=== PATIENT | female | born 1965 | race African-American/Black ===

== ENCOUNTER 2019-03-19 17:00 | Inpatient (IN) ==
[2019-03-19] MEDS ORDERED: ONDANSETRON 4 MG/2 ML VIAL IV PRN (18:42)
[2019-03-19] MEDS ORDERED: ACETAMINOPHEN 325 MG TABLET PO PRN (18:42)
[2019-03-19] MEDS ORDERED: SODIUM CHLORIDE 0.9% 1,000 ML IV PRN (18:42)
[2019-03-19 19:31] LABS: Hematocrit 29.8 VOL% (35.7-47.0); Hemoglobin 9.1 GM/DL (12.0-16.0)
[2019-03-19 19:32] LABS: Basophils % 0.3 % (0.0-0.8); Eosinophils # 0.3 10*3/uL (0.0-0.87); Eosinophils % 1.7 % (0.00-10.9); Hematocrit 29.2 VOL% (35.7-47.0); Hemoglobin 9.1 GM/DL (12.0-16.0); Immature Granulocytes % 1.5 %; Immature Granulocytes Absolute 0.22 #; Lymphocytes # 3.3 10*3/uL (1.4-4.0); Lymphocytes % 23.2 % (21.3-54.2); Mean Corpuscular HGB Conc 31.2 GM/DL (32-36); Mean Platelet Volume 10.6 FL (9.6-12.0); Monocytes % 7.4 % (1.7-12.7); Neutrophils % 65.9 % (38.7-73.9); Platelet Count 569 T/CUMM (130-400); Red Blood Count 3.21 MC/CUMM (3.8-5.5); Red Cell Distribution Width 16.8 % (9.3-17.3); White Blood Count 14.4 T/CUMM (4-12)
[2019-03-19] MEDS ORDERED: DEXTROSE 50% 25 GM/50 ML VIAL IV PRN (19:58)
[2019-03-19] MEDS ORDERED: GLUCAGON 1 MG VIAL IM PRN (19:58)
[2019-03-19] MEDS ORDERED: COLCHICINE 0.6 MG CAPSULE PO PRN (20:04)
[2019-03-19] MEDS: LEVOFLOXACIN INJ 500 MG in PREMIX 1 EACH IV SCH (21:19)
[2019-03-19] MEDS: PANTOPRAZOLE 40 MG TABLET PO SCH (21:27)
[2019-03-19] MEDS: GABAPENTIN 300 MG CAPSULE PO SCH (21:27)
[2019-03-20] MEDS: INSULIN REGULAR 100 UNIT/ML SUBCUT SCH ×5 (00:22→20:37)
[2019-03-20 01:00] LABS: Hematocrit 26.6 VOL% (35.7-47.0); Hemoglobin 8.3 GM/DL (12.0-16.0)
[2019-03-20 06:58] LABS: Hematocrit 26.5 VOL% (35.7-47.0); Hemoglobin 8.3 GM/DL (12.0-16.0)
[2019-03-20 07:30] LABS: Alanine Aminotransferase 18 U/L (13-56); Albumin 1.5 G/DL (3.4-5.0); Alkaline Phosphatase 107 U/L (45-117); Aspartate Amino Transferase 14 U/L (0-37); Bilirubin,Total < 0.39 MG/DL (0.2-1.0); Blood Urea Nitrogen 24 MG/DL (7-18); Calcium 8.9 MG/DL (8.5-10.1); Estimated Glom Filtration Rate 48 ML/MIN; Glucose 76 MG/DL (74-106); Osmolality,Calculated 281.4 MOS/KG (273-304); Total Protein 6.7 G/DL (6.4-8.3)
[2019-03-20] MEDS ORDERED: PANTOPRAZOLE 40 MG TABLET PO SCH (09:00)
[2019-03-20] MEDS: ESCITALOPRAM 10 MG TABLET PO SCH (09:24)
[2019-03-20] MEDS: PANTOPRAZOLE 40 MG TABLET PO SCH ×2 (09:24→20:35)
[2019-03-20] MEDS: allopurinoL 100 MG TABLET PO SCH (09:24)
[2019-03-20] MEDS: METOPROLOL TARTRATE 100 MG TABLET PO SCH (09:24)
[2019-03-20] MEDS: amLODIPine 10 MG TABLET PO SCH (09:24)
[2019-03-20] MEDS ORDERED: LIDOCAINE 2% 5 ML VIAL ONE (09:30)
[2019-03-20] MEDS ORDERED: propofoL 200 MG/20 ML VIAL IV ONE (09:30)
[2019-03-20] MEDS ORDERED: PHENYLEPHRINE 1 MG/10 ML SYRINGE IV ONE (09:30)
[2019-03-20] MEDS: SODIUM CHLORIDE 0.9% 1,000 ML IV SCH (11:20)
[2019-03-20 13:39] LABS: Hematocrit 27.9 VOL% (35.7-47.0); Hemoglobin 8.5 GM/DL (12.0-16.0)
[2019-03-20] MEDS: SODIUM HYPOCHLORITE 0.25% IRRIG 473 ML BOTTLE TOP SCH (16:05)
[2019-03-20 19:29] LABS: Hematocrit 27.9 VOL% (35.7-47.0); Hemoglobin 8.8 GM/DL (12.0-16.0)
[2019-03-20] MEDS: GABAPENTIN 300 MG CAPSULE PO SCH (20:35)
[2019-03-20] MEDS: LEVOFLOXACIN INJ 500 MG in PREMIX 1 EACH IV SCH (20:37)
[2019-03-21 06:50] LABS: Basophils % 0.3 % (0.0-0.8); Eosinophils # 0.2 10*3/uL (0.0-0.87); Eosinophils % 1.6 % (0.00-10.9); Hematocrit 28.9 VOL% (35.7-47.0); Immature Granulocytes % 1.1 %; Immature Granulocytes Absolute 0.15 #; Lymphocytes # 1.5 10*3/uL (1.4-4.0); Lymphocytes % 10.7 % (21.3-54.2); Mean Corpuscular HGB Conc 31.1 GM/DL (32-36); Mean Corpuscular Volume 90.3 FL (87-102); Mean Platelet Volume 10.4 FL (9.6-12.0); Monocytes % 5.6 % (1.7-12.7); Neutrophils % 80.7 % (38.7-73.9); Platelet Count 587 T/CUMM (130-400); Red Cell Distribution Width 17.2 % (9.3-17.3); White Blood Count 13.7 T/CUMM (4-12)
[2019-03-21] MEDS: METOPROLOL TARTRATE 100 MG TABLET PO SCH (10:02)
[2019-03-21] MEDS: ESCITALOPRAM 10 MG TABLET PO SCH (10:02)
[2019-03-21] MEDS: allopurinoL 100 MG TABLET PO SCH (10:02)
[2019-03-21] MEDS: amLODIPine 10 MG TABLET PO SCH (10:03)
[2019-03-21] MEDS: INSULIN REGULAR 100 UNIT/ML SUBCUT SCH ×3 (10:04→16:56)
[2019-03-21] MEDS: SODIUM HYPOCHLORITE 0.25% IRRIG 473 ML BOTTLE TOP SCH (10:04)
[2019-03-21] MEDS: PANTOPRAZOLE 40 MG TABLET PO SCH (10:04)
[2019-03-21 15:36] VITALS: BP 142/74
[2019-03-21] MEDS: SODIUM CHLORIDE 0.9% 1,000 ML IV SCH (16:56)
== END 2019-03-21 18:30 | disposition swing bed (61) | DRG 378 ==
LOC: N.5E 18:32
PROVIDERS: ADMIT Internal Medicine; ATTEND Internal Medicine

== ENCOUNTER 2019-12-02 13:24 | Inpatient (IN) ==
[2019-12-02] MEDS ORDERED: GLUCAGON 1 MG VIAL IM PRN (16:23)
[2019-12-02] MEDS ORDERED: DEXTROSE 50% 25 GM/50 ML VIAL IV PRN (16:23)
[2019-12-02] MEDS ORDERED: ONDANSETRON 4 MG/2 ML VIAL IV PRN (16:30)
[2019-12-02] MEDS ORDERED: ACETAMINOPHEN 325 MG TABLET PO PRN (16:30)
[2019-12-02] MEDS ORDERED: hydrALAZINE 20 MG/1 ML VIAL IV PRN (16:30)
[2019-12-02 17:39] LABS: Basophils # 0.1 10*3/uL (0.0-0.2); Basophils % 0.7 % (0.0-0.8); Eosinophils # 0.6 10*3/uL (0.0-0.87); Hemoglobin 12.1 GM/DL (12.0-16.0); Immature Granulocytes % 0.4 %; Immature Granulocytes Absolute 0.04 #; Lymphocytes # 2.5 10*3/uL (1.4-4.0); Lymphocytes % 27.2 % (21.3-54.2); Mean Corpuscular HGB Conc 31.8 GM/DL (32-36); Mean Corpuscular Volume 89.4 FL (87-102); Mean Platelet Volume 11.5 FL (9.6-12.0); Monocytes % 9.5 % (1.7-12.7); Neutrophils % 55.2 % (38.7-73.9); Platelet Count 348 T/CUMM (130-400); Red Blood Count 4.25 MC/CUMM (3.8-5.5); Red Cell Distribution Width 15.8 % (9.3-17.3); White Blood Count 9.1 T/CUMM (4-12)
[2019-12-02 18:06] LABS: Alanine Aminotransferase 18 U/L (13-56); Albumin 2.6 G/DL (3.4-5.0); Alkaline Phosphatase 144 U/L (45-117); Aspartate Amino Transferase 14 U/L (0-37); Bilirubin,Total < 0.39 MG/DL (0.2-1.0); Blood Urea Nitrogen 60 MG/DL (7-18); Calcium 9.8 MG/DL (8.5-10.1); Estimated Glom Filtration Rate 8 ML/MIN; Glucose 84 MG/DL (74-106); Osmolality,Calculated 290.7 MOS/KG (273-304)
[2019-12-02] MEDS: SODIUM CHLORIDE 0.9% 1,000 ML IV SCH (18:11)
[2019-12-02] MEDS: PANTOPRAZOLE 40 MG TABLET PO SCH (18:11)
[2019-12-02 18:13] LABS: Thyroid Stimulating Hormone 0.987 uIU/ml (0.358-3.74)
[2019-12-02] MEDS ORDERED: METOPROLOL TARTRATE 100 MG TABLET PO SCH (21:00)
[2019-12-02] MEDS ORDERED: CEFEPIME 1,000 MG in SODIUM CHLORIDE 0.9% 100 ML IV SCH (21:00)
[2019-12-02] MEDS: INSULIN LISPRO 100 UNIT/ML SUBCUT SCH (21:34)
[2019-12-03] MEDS: SODIUM CHLORIDE 0.9% 1,000 ML IV SCH ×3 (01:45→15:22)
[2019-12-03 05:44] LABS: Basophils % 0.5 % (0.0-0.8); Eosinophils # 0.6 10*3/uL (0.0-0.87); Eosinophils % 6.8 % (0.00-10.9); Hematocrit 35.9 VOL% (35.7-47.0); Hemoglobin 11.4 GM/DL (12.0-16.0); Immature Granulocytes % 0.4 %; Immature Granulocytes Absolute 0.03 #; Lymphocytes # 2.5 10*3/uL (1.4-4.0); Lymphocytes % 30.4 % (21.3-54.2); Mean Corpuscular HGB Conc 31.8 GM/DL (32-36); Mean Platelet Volume 11.5 FL (9.6-12.0); Monocytes % 8.8 % (1.7-12.7); Neutrophils % 53.1 % (38.7-73.9); Platelet Count 338 T/CUMM (130-400); Red Blood Count 3.99 MC/CUMM (3.8-5.5); Red Cell Distribution Width 15.6 % (9.3-17.3); White Blood Count 8.1 T/CUMM (4-12)
[2019-12-03 06:09] LABS: Albumin 2.3 G/DL (3.4-5.0); Bilirubin,Total 1.1 MG/DL (0.2-1.0); Calcium 9.2 MG/DL (8.5-10.1); Osmolality,Calculated 296.4 MOS/KG (273-304); Risk Ratio 5.03; Total Protein 7.1 G/DL (6.4-8.3); VLDL CHOLESTEROL 19.6 MG/DL
[2019-12-03] MEDS: INSULIN LISPRO 100 UNIT/ML SUBCUT SCH ×3 (08:47→17:38)
[2019-12-03] MEDS ORDERED: METOPROLOL TARTRATE 100 MG TABLET PO SCH (09:00)
[2019-12-03] MEDS: amLODIPine 10 MG TABLET PO SCH (09:18)
[2019-12-03] MEDS: ASPIRIN EC 81 MG TABLET PO SCH (09:19)
[2019-12-03] MEDS: METOPROLOL SUCCINATE XL 100 MG TABLET PO SCH ×2 (12:45→21:15)
[2019-12-03] MEDS: SODIUM BICARB INJ 50 MEQ in SODIUM CHLORIDE 0.45% 1,000 ML IV SCH (16:57)
[2019-12-03] MEDS: PANTOPRAZOLE 40 MG TABLET PO SCH (17:16)
[2019-12-03 19:55] LABS: Apearance,Urine CLEAR (Clear); Bacteria,Urine Occasional /HPF (Few); Bilirubin,Urine Negative (Negative); Blood, Urine Negative (Negative); Glucose,Urine (UA) >=500 mg/dL (Negative); Ketones,Urine Negative (Negative); Mucus,Urine Occasional /LPF (Occasional); Nitrite,Urine Negative (Negative); Protein,Urine 30 MG/DL; RBC,Urine 2 /HPF (0-4); Squamous Epithelial Cell,Urine Occasional /HPF (0-10); Urine Color Straw (Yellow); Urine Specific Gravity 1.007 (1.001-1.035); Urine Urobilinogen < 2.0 EU/DL (0.2-1.0); WBC,Urine 2 /HPF (0-6)
[2019-12-04] MEDS: INSULIN LISPRO 100 UNIT/ML SUBCUT SCH ×5 (01:40→23:21)
[2019-12-04 05:59] LABS: Basophils # 0.1 10*3/uL (0.0-0.2); Basophils % 0.6 % (0.0-0.8); Eosinophils # 0.6 10*3/uL (0.0-0.87); Eosinophils % 6.7 % (0.00-10.9); Hematocrit 36.4 VOL% (35.7-47.0); Hemoglobin 11.6 GM/DL (12.0-16.0); Immature Granulocytes % 0.7 %; Immature Granulocytes Absolute 0.07 #; Lymphocytes # 2.9 10*3/uL (1.4-4.0); Lymphocytes % 29.7 % (21.3-54.2); Mean Corpuscular HGB Conc 31.9 GM/DL (32-36); Mean Corpuscular Volume 90.3 FL (87-102); Mean Platelet Volume 10.9 FL (9.6-12.0); Neutrophils % 54.3 % (38.7-73.9); Platelet Count 364 T/CUMM (130-400); Red Blood Count 4.03 MC/CUMM (3.8-5.5); Red Cell Distribution Width 15.7 % (9.3-17.3); White Blood Count 9.6 T/CUMM (4-12)
[2019-12-04 06:18] LABS: Albumin 2.4 G/DL (3.4-5.0); Bilirubin,Total 0.4 MG/DL (0.2-1.0); Calcium 9.8 MG/DL (8.5-10.1); Osmolality,Calculated 296.3 MOS/KG (273-304); Total Protein 7.4 G/DL (6.4-8.3)
[2019-12-04] MEDS: SODIUM BICARB INJ 50 MEQ in SODIUM CHLORIDE 0.45% 1,000 ML IV SCH ×3 (07:36→17:57)
[2019-12-04] MEDS: ASPIRIN EC 81 MG TABLET PO SCH (09:02)
[2019-12-04] MEDS: amLODIPine 10 MG TABLET PO SCH (09:02)
[2019-12-04] MEDS: METOPROLOL SUCCINATE XL 100 MG TABLET PO SCH ×2 (09:02→20:59)
[2019-12-04] MEDS: PANTOPRAZOLE 40 MG TABLET PO SCH (16:48)
[2019-12-05] MEDS: SODIUM BICARB INJ 50 MEQ in SODIUM CHLORIDE 0.45% 1,000 ML IV SCH ×3 (04:35→16:45)
[2019-12-05 06:04] LABS: Basophils # 0.1 10*3/uL (0.0-0.2); Basophils % 0.7 % (0.0-0.8); Eosinophils # 0.6 10*3/uL (0.0-0.87); Eosinophils % 6.4 % (0.00-10.9); Hematocrit 32.1 VOL% (35.7-47.0); Hemoglobin 10.2 GM/DL (12.0-16.0); Immature Granulocytes % 0.4 %; Immature Granulocytes Absolute 0.04 #; Lymphocytes # 2.8 10*3/uL (1.4-4.0); Lymphocytes % 28.6 % (21.3-54.2); Mean Corpuscular HGB Conc 31.8 GM/DL (32-36); Mean Corpuscular Volume 89.4 FL (87-102); Mean Platelet Volume 11.4 FL (9.6-12.0); Monocytes % 10.3 % (1.7-12.7); Neutrophils % 53.6 % (38.7-73.9); Platelet Count 309 T/CUMM (130-400); Red Blood Count 3.59 MC/CUMM (3.8-5.5); Red Cell Distribution Width 15.4 % (9.3-17.3); White Blood Count 9.9 T/CUMM (4-12)
[2019-12-05 06:41] LABS: Albumin 2.3 G/DL (3.4-5.0); Bilirubin,Total 0.6 MG/DL (0.2-1.0); Calcium 9.5 MG/DL (8.5-10.1); Osmolality,Calculated 296.3 MOS/KG (273-304); Total Protein 6.8 G/DL (6.4-8.3)
[2019-12-05] MEDS: INSULIN LISPRO 100 UNIT/ML SUBCUT SCH ×4 (07:17→21:21)
[2019-12-05] MEDS: ASPIRIN EC 81 MG TABLET PO SCH (09:00)
[2019-12-05] MEDS: amLODIPine 10 MG TABLET PO SCH (09:00)
[2019-12-05] MEDS: allopurinoL 100 MG TABLET PO SCH (09:00)
[2019-12-05] MEDS: METOPROLOL SUCCINATE XL 100 MG TABLET PO SCH ×2 (09:01→21:21)
[2019-12-05] MEDS: PANTOPRAZOLE 40 MG TABLET PO SCH (16:44)
[2019-12-06] MEDS: SODIUM BICARB INJ 50 MEQ in SODIUM CHLORIDE 0.45% 1,000 ML IV SCH (01:11)
[2019-12-06 08:11] VITALS: BP 149/65
[2019-12-06] MEDS: INSULIN LISPRO 100 UNIT/ML SUBCUT SCH (08:20)
[2019-12-06] MEDS: allopurinoL 100 MG TABLET PO SCH (08:30)
[2019-12-06] MEDS: METOPROLOL SUCCINATE XL 100 MG TABLET PO SCH (08:30)
[2019-12-06] MEDS: ASPIRIN EC 81 MG TABLET PO SCH (08:30)
[2019-12-06] MEDS: amLODIPine 10 MG TABLET PO SCH (08:30)
== END 2019-12-06 11:29 | disposition home or self-care (01) | DRG 682 ==
LOC: N.5E → OBSVTOIN 15:47 → SUATTDRO 15:47
PROVIDERS: ADMIT Internal Medicine; ATTEND Internal Medicine